=== PATIENT | male | born 1960 | race Caucasian/White ===

== ENCOUNTER → 2017-01-31 | Outpatient (CLI) | payer BC ==
--- NOTE | 2017-01-31 17:48 | PCVCIMAG ---
APPROVED REPORT Exam: Stress Echocardiogram Indication: Hyperlipidemia, Hypertension, Family hx. cad, Pre op knee surgery Patient Location: Echo lab Stress Nurse: Lea Montgomery RN Status: routine Ht: 6 ft 4 in HR: 96 bpm BP: 148/98 mmHg Rhythm: RBBB Procedure The patient underwent an Exercise Stress Test using the Chano Protocol. Blood pressure, heart rate, and EKG were monitored. An Echocardiogram was performed by structural engineering technician in four stages in quad fashion. At peak stress, four selected images were obtained and placed side by side with resting images for comparison. Stress Test Details Stress Test: Exercise stress testing was performed using a Chano protocol. HR Resting HR: 96 bpmMax Heart Rate (APMHR): 165 bpm Max HR Achieved: 155 bpmTarget HR (85% APMHR): 140 bpm % of APMHR: 93 HR response to stress: Normal HR response to stress BP Resting BP: 148/98 mmHg Max BP: 190/84 mmHg ECG Resting ECG: Sinus Rhythm, RBBB Stress ECG: Sinus Rhythm, LBBB Clinical Reason for Termination: Maximal effort, Knee Pain Stress Symptoms: Knee Pain Exercise duration: 6 min sec Highest Stage Achieved: Stage 2: 2.5 mph at 12% grade. Exercise capacity: 7.20 METs Overall Exercise Capacity for Age: Normal Pre-Stress Echo The resting Echocardiogram showed normal left ventricular contractility with an estimated Ejection Fraction of about >55%. Normal wall motion in all segments on baseline images. Post-Stress Echo The stress Echocardiogram showed normal left ventricular contractility with an estimated Ejection Fraction of about 60-65%. Normal augmentation of wall motion in all segments on post stress images. Clinical No clinical or ECG evidence for ischemia. Conclusion Clinical Response: Non-ischemic Exercise Capacity: Below Average Stress ECG Response: Non-ischemic Stress Echo Images: Non-ischemic Other Information Study Quality: Adequate
== END | disposition home or self-care (01) ==
LOC: PCVCIMAG 15:17
PROVIDERS: ATTEND Internal Medicine Cardiovascular Disease
DX: I10 Essential (primary) hypertension (principal); R06.00 Dyspnea, unspecified; R07.9 Chest pain, unspecified; E78.5 Hyperlipidemia, unspecified; Z82.49 Family history of ischemic heart disease and other diseases of the circulatory system
CPT/HCPCS: 93325; 93351